=== PATIENT | female | born 1945 | race Caucasian/White ===

== ENCOUNTER → 2016-05-09 | Outpatient (CLI) | payer MEDICARE, BC, OTHER | LOC: RAD 09:13 | DX: M54.6 Pain in thoracic spine (principal); M47.814 Spondylosis without myelopathy or radiculopathy, thoracic region | CPT/HCPCS: 72072 ==

== ENCOUNTER 2021-06-19 13:06 | Emergency (ER) | payer MEDICARE, BC, OTHER ==
[~2021-06-19 13:06] MED LIST: AMOXICILLIN500 MG PO; BIAXIN 250MG T250 MG PO; CYANOCOBAL1000 MCG/1 INJ; KLONOPIN TAB 00.5 MG PO; LEVOFLOXACIN250 MG PO; LEXAPRO10 MG PO; MACRODANTIN100 MG PO; OMEPRAZOLE20 MG PO; SINEMET 25/100 T1 EA PO; VITAMIN D35000 UNI1 PO
[2021-06-19 14:02] LABS: HEMOGLOBIN 15.1 gm/dl (12.3-15.3); RED BLOOD COUNT 5.16 M/UL (4.00-5.10); WHITE BLOOD COUNT 5.1 K/UL (4.5-11.0)
[2021-06-19 14:31] LABS: BUN/CREATININE RATIO 28 (0-10)
[2021-06-19] MEDS ORDERED: ZANAFLEX2 MG PO (16:07)
[2021-06-20] MEDS ORDERED: HYDROCODON-ACE1 EAC4 PO (18:51)
[2021-06-20] MEDS ORDERED: CEFDINIR300 MG PO (18:51)
== END 2021-06-19 16:35 | disposition home or self-care (01) ==
LOC: ER1 13:06
PROVIDERS: Physician Assistant
DX: S39.012A Strain of muscle, fascia and tendon of lower back, initial encounter (principal); K21.9 Gastro-esophageal reflux disease without esophagitis; X50.9XXA Other and unspecified overexertion or strenuous movements or postures, initial encounter
CPT/HCPCS: 71045; 72100; 80053; 82550; 82553; 83690; 84484; 85025; 99283; J1885

== ENCOUNTER 2021-06-20 15:38 | Emergency (ER) | payer MEDICARE, BC, OTHER ==
[~2021-06-20 15:38] MED LIST changes: +ZANAFLEX2 MG PO
[2021-06-20 16:48] LABS: RED BLOOD COUNT 5.1 M/UL (4.00-5.10)
[2021-06-20 16:49] LABS: WHITE BLOOD COUNT 7.8 K/UL (4.5-11.0)
[2021-06-20 17:15] LABS: BUN/CREATININE RATIO 30 (0-10)
[2021-06-20] MEDS ORDERED: HYDROCODON-ACE1 EAC4 PO (18:51)
[2021-06-20] MEDS ORDERED: CEFDINIR300 MG PO (18:51)
== END 2021-06-20 19:22 | disposition home or self-care (01) ==
LOC: ER1 15:38
PROVIDERS: Nurse Practitioner
DX: M54.50 Low back pain, unspecified (principal); N39.0 Urinary tract infection, site not specified; Z88.2 Allergy status to sulfonamides; Z88.1 Allergy status to other antibiotic agents
CPT/HCPCS: 72131; 80053; 81001; 82550; 82553; 84484; 85025; 85652; 86140; 87077; 87086; 87186; 93005; 99284

== ENCOUNTER → 2021-07-19 | Outpatient (CLI) | payer MEDICARE, BC, OTHER ==
[~2021-07-19] MED LIST changes: +CEFDINIR300 MG PO; +HYDROCODON-ACE1 EAC4 PO
== END ==
LOC: EXRD 07-14 15:00
DX: M81.0 Age-related osteoporosis without current pathological fracture (principal)
CPT/HCPCS: 77080